=== PATIENT | female | born 2000 | race Caucasian/White ===

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

== ENCOUNTER 2021-08-14 17:11 | Emergency (ER) | payer MEDICAID ==
[~2021-08-14] VITALS: Ht 170.2 cm; Wt 84.1 kg
[~2021-08-14 17:11] MED LIST changes: +CETI-450 PO; +DIPH25 PO; +FLUO10CA24 PO
[2021-08-14] MEDS ORDERED: CHOL500043 PO (17:30)
[2021-08-14] MEDS ORDERED: FLUO20CA36 PO (17:40)
[2021-08-14] MEDS ORDERED: ACETAMINOPHEN 500 MG TABLET PO ONE (17:45)
[2021-08-14 18:07] LABS: COVID AG,FIA SOURCE NASOPHARYNGEAL
[2021-08-14 18:33] LABS: RAPID GROUP A STREP NEGATIVE (NEGATIVE)
[2021-08-14 18:38] LABS: INFLUENZA TYPE A NEGATIVE FOR TYPE A (NEGATIVE); INFLUENZA TYPE B NEGATIVE FOR TYPE B (NEGATIVE)
[2021-08-14 20:08] LABS: APPEARANCE,URINE CLEAR (CLEAR); BILIRUBIN,URINE NEGATIVE (NEGATIVE); GLUCOSE, URINE (UA) NEGATIVE (NEGATIVE); KETONES,URINE TRACE mg/dL (NEGATIVE); LEUKOCYTE ESTERASE ,URINE MODERATE (NEGATIVE); NITRATE,URINE NEGATIVE (NEGATIVE); OCCULT BLOOD,URINE SMALL (NEGATIVE); PH,URINE 6.5 (5.0-8.0); PROTEIN,URINE POS 1+ (NEGATIVE)
[2021-08-14 20:25] LABS: BACTERIA,URINE Few /HPF (None Seen); RBC,URINE 0-2 /HPF (0-2); SQUAMOUS EPITHELIAL CELL,UR Few /LPF (None Seen); YEAST,URINE None Seen /HPF (None Seen)
[2021-08-14] MEDS ORDERED: DOXYCYCLINE HYCLATE 100 MG TABLET PO ONE (23:00)
[2021-08-14] MEDS ORDERED: CefTRIAXone SODIUM 1 GM/VIAL IM ONE (23:00)
[2021-08-14] MEDS ORDERED: LIDOCAINE/PF 1% 2 ML VIAL IM ONE (23:00)
[2021-08-14 23:19] VITALS: BP 109/69
== END 2021-08-14 23:49 | disposition home or self-care (01) ==
LOC: EMS 17:14
DX: A64 Unspecified sexually transmitted disease (principal); Z20.822 Contact with and (suspected) exposure to COVID-19
CPT/HCPCS: 81001; 84703; 87086; 87210; 87426; 87430; 87491; 87591; 87804; 96372; 99283; J0696; J3490; U0003

== ENCOUNTER 2023-07-13 15:21 | Emergency (ER) | payer MEDICAID ==
[~2023-07-13] VITALS: Ht 170.2 cm; Wt 81.8 kg
[~2023-07-13 15:21] MED LIST changes: +CHOL500043 PO; +DIPH-1243 PO; -DIPH25 PO; -FLUO10CA24 PO; +FLUO20CA36 PO; -HYD25 PO; +HYDR-4527 PO
[2023-07-13 15:24] VITALS: TEMP 98.6
[2023-07-13] MEDS ORDERED: BACITRACIN 0.9 GM PACKET OINTMENT TP ONE (15:45)
[2023-07-13] MEDS ORDERED: LIDOCAINE 1% 10 ML VIAL ID ONE (15:45)
[2023-07-13 16:48] VITALS: BP 138/80; PULSE 82; RESP 18
== END 2023-07-13 16:50 | disposition home or self-care (01) ==
LOC: EMS 15:21
DX: S61.210A Laceration without foreign body of right index finger without damage to nail, initial encounter (principal); J45.909 Unspecified asthma, uncomplicated; W26.8XXA Contact with other sharp object(s), not elsewhere classified, initial encounter; Y93.89 Activity, other specified; Y92.89 Other specified places as the place of occurrence of the external cause; Y99.8 Other external cause status
CPT/HCPCS: 99282; 12001; J3490

== ENCOUNTER 2023-11-25 18:02 | Emergency (ER) | payer MEDICAID ==
[~2023-11-25] VITALS: Ht 170.2 cm; Wt 84.1 kg
[2023-11-25 20:07] LABS: COVID AG,FIA SOURCE NASAL SWAB
[2023-11-25 20:13] LABS: APPEARANCE,URINE HAZY (CLEAR); COLOR,URINE YELLOW (YELLOW); GLUCOSE, URINE (UA) NEGATIVE (NEGATIVE); KETONES,URINE 80-100 mg/dL (NEGATIVE); LEUKOCYTE ESTERASE ,URINE LARGE (NEGATIVE); NITRATE,URINE NEGATIVE (NEGATIVE); OCCULT BLOOD,URINE NEGATIVE (NEGATIVE); PH,URINE 6.5 (5.0-8.0); PROTEIN,URINE 100-200,SEE CONFIRM mg/dL (NEGATIVE); SPECIFIC GRAVITIY, URINE 1.037 (1.003-1.030)
[2023-11-25 20:17] LABS: BILIRUBIN,URINE SMALL (NEGATIVE)
[2023-11-25 20:27] LABS: SULFOSALICYLIC ACID,URINE 2+ (Negative)
[2023-11-25 20:28] LABS: BACTERIA,URINE Few /HPF (None Seen); RBC,URINE 0-2 /HPF (0-2); SQUAMOUS EPITHELIAL CELL,UR Moderate /LPF (None Seen)
[2023-11-25 20:44] LABS: SARS-COV2 (COVID) ANTIGEN,FIA Negative (Negative)
[2023-11-25 21:30] VITALS: BP 127/76; PULSE 90; RESP 16; TEMP 97.3
[2023-11-25] MEDS ORDERED: AMOX500C2 PO (21:34)
[2023-11-25] MEDS ORDERED: IBUP-1492 PO (21:34)
== END 2023-11-25 23:03 | disposition home or self-care (01) ==
LOC: EMS 18:03
DX: J03.90 Acute tonsillitis, unspecified (principal); J06.9 Acute upper respiratory infection, unspecified; J45.909 Unspecified asthma, uncomplicated; Z20.822 Contact with and (suspected) exposure to COVID-19
CPT/HCPCS: 81001; 81002; 84703; 87086; 87186; 87430; 99283

== ENCOUNTER 2025-01-31 09:17 | Emergency (ER) | payer SELFPAY ==
[~2025-01-31] VITALS: Ht 172.7 cm; Wt 81.8 kg
[~2025-01-31 09:17] MED LIST changes: +ACET-66 PO; +AMOX500C2 PO; -CETI-450 PO; -CHOL500043 PO; -DIPH-1243 PO; -FLUO20CA36 PO; -HYDR-4527 PO; +IBUP-1492 PO; +OMEP-148 PO; +ONDA-104 PO
[2025-01-31 09:21] VITALS: BP 123/78; PULSE 92; RESP 16; TEMP 98.4; O2SAT 100
[2025-01-31 09:45] LABS: BASOPHILS % (AUTO) 0.5 % (0.0-2.0); EOSINOPHILS % (AUTO) 3.6 % (1.0-6.0); HEMATOCRIT 38.1 % (36-46); HEMOGLOBIN 12.5 g/dL (12.0-16.0); LYMPHOCYTES # (AUTO) 1.4 K/uL (1.0-4.8); LYMPHOCYTES % (AUTO) 17.8 % (22.0-44.0); MEAN CORPUSCULAR HEMOGLOBIN 27.8 pg (26.0-34.0); MEAN CORPUSCULAR HGB CONC 32.9 G/dL (31.0-37.0); MEAN CORPUSCULAR VOLUME 85 fL (80-100); MONOCYTES # (AUTO) 0.7 K/uL (0.1-1.0); MONOCYTES % (AUTO) 8.5 % (2.0-9.0); NEUTROPHILS # (AUTO) 5.6 K/uL (1.8-7.7); NEUTROPHILS % (AUTO) 69.6 % (40.0-70.0); PLATELET COUNT (AUTO) 369 K/uL (150-450)
[2025-01-31 09:53] LABS: ANION GAP 8 mmol/L (8-16); CALCIUM, TOTAL 8.8 mg/dL (8.8-10.5); CARBON DIOXIDE 29 mmol/L (22-29); CHLORIDE 102 mmol/L (98-107); CREATININE 0.57 mg/dL (0.60-1.30); GLOMERULAR FILTR. RATE CALC > 60 mL/min (>60); GLUCOSE,RANDOM 98 mg/dL (70-110); LIPASE 21 U/L (16-77); POTASSIUM 4.3 mmol/L (3.5-5.1); SODIUM SERUM 139 mmol/L (136-145); UREA NITROGEN, BLOOD 10 mg/dL (7-18)
[2025-01-31 10:25] LABS: ALBUMIN 3.4 g/dL (3.4-5.0); BILIRUBIN,DIRECT 0.1 mg/dL (0.00-0.20); BILIRUBIN,TOTAL 0.4 mg/dL (0.1-1.0); TOTAL PROTEIN, SERUM 7.4 g/dL (6.4-8.2)
[2025-01-31] MEDS ORDERED: PANT-31 PO (11:22)
[2025-01-31] MEDS: PANTOPRAZOLE SODIUM 40 MG DR TABLET PO ONE (11:31)
[2025-01-31 11:58] LABS: APPEARANCE,URINE CLEAR (CLEAR); BILIRUBIN,URINE NEGATIVE (NEGATIVE); COLOR,URINE COLORLESS (YELLOW); GLUCOSE, URINE (UA) NEGATIVE (NEGATIVE); KETONES,URINE NEGATIVE (NEGATIVE); LEUKOCYTE ESTERASE ,URINE NEGATIVE (NEGATIVE); NITRATE,URINE NEGATIVE (NEGATIVE); OCCULT BLOOD,URINE NEGATIVE (NEGATIVE); PROTEIN,URINE NEGATIVE (NEGATIVE); SPECIFIC GRAVITIY, URINE 1.005 (1.003-1.030); UROBILINOGEN,URINE <=1.0 mg/dL (<=1.0)
== END 2025-01-31 11:48 | disposition home or self-care (01) ==
LOC: EMS 09:21
DX: K29.70 Gastritis, unspecified, without bleeding (principal); J45.909 Unspecified asthma, uncomplicated; F12.90 Cannabis use, unspecified, uncomplicated; F10.90 Alcohol use, unspecified, uncomplicated; Y90.9 Presence of alcohol in blood, level not specified
CPT/HCPCS: 76700; 80048; 80076; 81003; 83690; 84703; 85025; 99284